=== PATIENT | female | born 1945 | race Caucasian/White ===

== ENCOUNTER 2018-05-29 11:14 | Emergency (ER) | payer MEDICARE ==
--- NOTE | 2018-05-29 13:51 | CT ---
Date of service: 05/29/2018 PROCEDURE: CT HEAD WITHOUT CONTRAST. HISTORY: fall, facial tingling COMPARISON: None available. TECHNIQUE: Axial computed tomography images were obtained through the head/brain without intravenous contrast. Radiation dose: Total exam DLP = 720 mGy-cm. This CT exam was performed using one or more of the following dose reduction techniques: Automated exposure control, adjustment of the mA and/or kV according to patient size, and/or use of iterative reconstruction technique. FINDINGS: HEMORRHAGE: No intracranial hemorrhage. BRAIN: Mild age related diffuse cerebral atrophy is noted as well as small vessel changes. There is calcific atherosclerotic change of the intracranial internal carotid arteries. Posterior fossa is unremarkable. No cortical effacement is noted. Subdural windows fail to reveal evidence of high density extra-axial acute subdural hematoma. VENTRICLES: Unremarkable. No hydrocephalus. CALVARIUM: There is evidence of orbital emphysema and irregularity of the anterior left maxilla and additionally irregularity of the left lateral maxilla bone consistent with fracture. Air is seen in the subcutaneous soft tissues of the left face. Please see CT scan of the facial bones for further detail. Left orbital fracture is also suspected inferiorly. No appreciable fracture is seen in the skull region. PARANASAL SINUSES: Please CT scan facial bone for details. Left maxillary sinus fluid is noted. MASTOID AIR CELLS: Unremarkable as visualized. No inflammatory changes. OTHER FINDINGS: None. IMPRESSION: No evidence of intracranial hemorrhage. Cerebral atrophy and small vessel changes. Left facial bone fractures.
--- NOTE | 2018-05-29 14:02 | CT ---
Date of service: 05/29/2018 PROCEDURE: CT MAXILLOFACIAL BONES WITHOUT CONTRAST HISTORY: fall, facial tingling COMPARISON: None available. TECHNIQUE: Contiguous axial CT images of the maxillofacial bones were obtained. Coronal and sagittal reformats were generated. Radiation dose: Total exam DLP = 802 mGy-cm. This CT exam was performed using one or more of the following dose reduction techniques: Automated exposure control, adjustment of the mA and/or kV according to patient size, and/or use of iterative reconstruction technique. FINDINGS: NASAL BONES: Nasal bone appears to be grossly intact. There is some soft tissue swelling overlying the maxillary spine region without appreciable fracture. ORBITS: There is evidence of irregularity of the orbital floor on the coronal images consistent with nondisplaced inferior orbital floor fracture. Mild adjacent soft tissue swelling is noted. There is also additionally moderate orbital emphysema and noted. A portion of the orbital emphysema extends out laterally at and posteriorly to lie within the soft tissues on axial image 77. There is soft tissue swelling and subcutaneous edema noted anterior to the left maxilla. No definite lamina papyracea fracture is seen. No right orbital fractures are noted. PARANASAL SINUSES/ MASTOIDS: There is evidence of a fracture of the anterior maxilla with minimal displacement and associated adjacent soft tissue swelling. There is also multiple fractures of the lateral sinus with minimal depression noted laterally, although some possible mild depression noted posteriorly and superiorly. Mild mucosal thickening and fluid are seen in the left maxillary sinus. Mild mucosal changes are seen in the sphenoid sinus. Pterygoid bones are intact. Zygoma appears grossly intact. Right maxilla is intact as well as the right zygoma. No zygomatic O frontal suture diastases is seen on the right or left. Minor mucosal thickening is seen inferiorly in the right maxillary sinus. Mandible is intact. Visualized cervical spine is intact. MAXILLA: See above MANDIBLE/ TEMPOROMANDIBULAR JOINTS: See above SKULL BASE: Unremarkable. TEMPORAL BONES: Middle ears and mastoid grossly unremarkable. OTHER FINDINGS: None. IMPRESSION: Multiple left maxilla fractures are identified as well as a nondisplaced left inferior orbital floor fracture. Lamina papyracea appears intact. Orbital emphysema as described above. Left maxillary sinus fluid and/or blood products. Obstruction of the left ostiomeatal complex. No right orbital fractures or maxilla fracture.
--- NOTE | 2018-05-29 14:57 | RAD ---
Date of service: 05/29/2018 PROCEDURE: Radiographs of the Chest and Left Ribs. HISTORY: fall, rib pain COMPARISON: None available. TECHNIQUE: Frontal radiograph of the chest and multiple oblique radiographs of the left ribs were obtained. FINDINGS: LEFT RIBS: No fracture or focal lesion visualized. LUNGS: Clear. PLEURA: No pneumothorax or pleural fluid. CARDIOVASCULAR: Normal sized heart. No pulmonary vascular congestion. Aorta is uncoiled. Trachea is midline. OTHER FINDINGS: None. IMPRESSION: Unremarkable radiographs of the chest and left ribs. No left rib fracture.
[2018-05-29 15:47] VITALS: BP 165/90; PULSE 70; RESP 19; TEMP 96.6; O2SAT 98
--- NOTE | 2018-05-29 15:57 | ED PDOC ---
HPI: General Adult Time Seen by Provider: 05/29/18 11:56 Chief Complaint (Nursing): Rib Injury Chief Complaint (Provider): Left rib pain History Per: Patient History/Exam Limitations: no limitations Onset/Duration Of Symptoms: Days Have you had recent travel within the past 21 days to any of the following countries: [place], [place], [place] or [place]?: No Current Symptoms Are (Timing): Still Present Additional Complaint(s): 73 yo female presents with left rib pain after a fall 3 days ago. Pt states she was walking across the street and tripped on uneven pavement. Pt hit left ribs and left face. No LOC. Pt states that she did not have chest pain or SOB before of after fall. Pt also reports tingling sensation in the left upper lip. Denies headache. Past Medical History Reviewed: Historical Data, Nursing Documentation, Vital Signs Vital Signs: Last Vital Signs Temp 96.6 F L 05/29/18 15:46 Pulse 70 05/29/18 15:46 Resp 19 05/29/18 15:46 BP 165/90 H 05/29/18 15:46 Pulse Ox 98 05/29/18 15:46 - Medical History PMH: Asthma, HTN - Surgical History Surgical History: No Surg Hx - Family History Family History: States: No Known Family Hx - Home Medications Home Medications: Ambulatory Orders Medication Instructions Recorded Alendronate [Fosamax] 70 mg PO QWK 05/29/18 Amoxicillin/Clavulanate [Augmentin 1 tab PO BID #20 tab 05/29/18 875 MG-125 MG] Levothyroxine [Levoxyl] 0.125 mg PO DAILY 05/29/18 Lisinopril/Hydrochlorothiazide 1 tab PO DAILY 05/29/18 [Lisinopril-Hydrochlorothiazide 25 mg-20 mg] - Allergies Allergies/Adverse Reactions: Allergies Allergy/AdvReac Type Severity Reaction Status Date / Time No Known Allergies Allergy Verified 05/29/18 12:35 Review of Systems ROS Statement: Except As Marked, All Systems Reviewed And Found Negative Physical Exam - Reviewed Nursing Documentation Reviewed: Yes Vital Signs Reviewed: Yes - Physical Exam Appears: Positive for: Well, Non-toxic, No Acute Distress Head Exam: Positive for: ATRAUMATIC, NORMAL INSPECTION, NORMOCEPHALIC Skin: Positive for: Warm. Negative for: Normal Color (Small area of ecchymosis inferior to the left eue ) Eye Exam: Positive for: Normal appearance, EOMI, PERRL, Periorbital tenderness ( Inferior left orbit ). Negative for: Periorbital swelling ENT: Positive for: Normal ENT Inspection Neck: Positive for: Normal, Painless ROM Cardiovascular/Chest: Positive for: Regular Rate, Rhythm Respiratory: Positive for: Normal Breath Sounds. Negative for: Accessory Muscle Use, Respiratory Distress Gastrointestinal/Abdominal: Positive for: Other ((+) left anterior tenderness without crepitus or step-off). Negative for: Tenderness Back: Positive for: Normal Inspection Extremity: Positive for: Normal ROM. 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 Negative for: Aphasia, Facial Droop - ECG O2 Sat by Pulse Oximetry: 98 Medical Decision Making Medical Decision Making: RIB XR IMPRESSION: Unremarkable radiographs of the chest and left ribs. No left rib fracture. Facial CR IMPRESSION: Multiple left maxilla fractures are identified as well as a nondisplaced left inferior orbital floor fracture. Lamina papyracea appears intact. Orbital emphysema as described above. Left maxillary sinus fluid and/or blood products. Obstruction of the left ostiomeatal complex. No right orbital fractures or maxilla fracture. Head CT IMPRESSION: No evidence of intracranial hemorrhage. Cerebral atrophy and small vessel changes. Left facial bone fractures. Visual acuity reviewed. Discussed importance of f/u with [facility]FS Pt did not want anything for pain in ER. Disposition - Clinical Impression Clinical Impression: Orbital fracture - Disposition Referrals: Ricky Ordoñez DDS [[facility]] - Disposition Time: 15:50 Condition: GOOD Additional Instructions: Please follow-up with oral, facial surgeon. Prescriptions: Amoxicillin/Clavulanate [Augmentin 875 MG-125 MG] 1 tab PO BID #20 tab Instructions: Skull and Facial Fractures (DC) Forms: [employer] ([place])
== END 2018-05-29 16:07 | disposition home or self-care (01) ==
LOC: H.ER 11:14
DX: S02.32XA Fracture of orbital floor, left side, initial encounter for closed fracture (principal); R07.82 Intercostal pain; W19.XXXA Unspecified fall, initial encounter; Y92.89 Other specified places as the place of occurrence of the external cause; I10 Essential (primary) hypertension